=== PATIENT | male | born 1940 | race Caucasian/White ===

== ENCOUNTER 2018-10-24 07:32 | Observation (INO) | payer MEDICARE, OTHER ==
[~2018-10-24] VITALS: Ht 167.6 cm; Wt 74.1 kg
[2018-10-24] MEDS ORDERED: [UNRECOGNIZED DRUG - REMARK] (07:39)
[2018-10-24 08:00] VITALS: BP 136/88
[2018-10-24 08:30] LABS: BASOPHILS 0.1 % (0-2); EOSINOPHILS 1.8 % (0-7); HEMATOCRIT 42.2 % (42.0-54.0); HEMOGLOBIN 14.6 g/dL (13.5-17.5); IMMATURE GRANULOCYTES 0.1 % (0-5); LYMPHOCYTES 17.5 % (15-50); MCH 33.6 pg (26.0-34.0); MCHC 34.6 g/dL (31.0-37.0); MEAN PLATELET VOLUME 10.2 fL (7.4-10.4); MONOCYTES 6.8 % (2-11); NEUTROPHILS 73.7 % (40-80); PLATELET COUNT 158 10x3/uL (130-400); RBC 4.35 10x6/uL (4.20-6.10); RDW 15.2 % (11.5-14.5); WBC 7.9 10x3/uL (4.8-10.8)
[2018-10-24 08:46] LABS: ALBUMIN 3.3 g/dL (3.4-5.0); ALKALINE PHOSPHATASE 68 U/L (46-116); ALT (SGPT) 12 U/L (10-68); BILIRUBIN - TOTAL 0.75 mg/dL (0.2-1.3); CALC OSMOLALITY 274 mosm/kg (275-300); CALCIUM 8.9 mg/dL (8.5-10.1); CARBON DIOXIDE 29.5 mmol/L (21.0-32.0); CHLORIDE - SERUM 100 mmol/L (98-107); CREATININE - SERUM 0.7 mg/dL (0.6-1.3); GLUCOSE 92 mg/dL (74-106); POTASSIUM - SERUM 3.6 mmol/L (3.5-5.1); PROTEIN - SERUM 6.9 g/dL (6.4-8.2); SODIUM 139 mmol/L (136-145); UREA NITROGEN 5 mg/dL (7-18); eGFR NON AFRICAN AMERICAN > 90 mL/min (90-120)
[2018-10-24 08:47] LABS: APPEARANCE SL CLDY (CLEAR); BILIRUBIN NEGATIVE (NEGATIVE); COLOR YELLOW (YELLOW); GLUCOSE NEGATIVE (NEGATIVE); KETONE LARGE mg/dL (NEGATIVE); NITRITE NEGATIVE (NEGATIVE); PROTEIN TRACE mg/dL (NEGATIVE); UROBILINOGEN NORMAL (NORMAL)
[2018-10-24 08:48] LABS: BACTERIA MANY /hpf (NONE SEEN); EPITHELIAL CELLS OCC /hpf (0-5)
[2018-10-24 08:51] LABS: AMYLASE - SERUM 32 U/L (25-115); LIPASE 175 U/L (73-393); TROPONIN-I < 0.017 ng/mL (0.000-0.060)
[2018-10-24 08:58] LABS: CREATINE KINASE 37 UL (21-232)
[2018-10-24 12:00] VITALS: BP 143/94
[2018-10-24 16:00] VITALS: BP 149/84
[2018-10-24 20:00] VITALS: BP 132/64
[2018-10-24 23:46] VITALS: BP 132/64; Ht 167.6 cm; Wt 74.1 kg
[2018-10-25] VITALS: BP 130/66
[2018-10-25 04:00] VITALS: BP 142/78
[2018-10-25 04:54] LABS: BASOPHILS 0.1 % (0-2); EOSINOPHILS 4.9 % (0-7); HEMATOCRIT 39.3 % (42.0-54.0); HEMOGLOBIN 13.4 g/dL (13.5-17.5); IMMATURE GRANULOCYTES 0.3 % (0-5); LYMPHOCYTES 20.1 % (15-50); MCH 32.9 pg (26.0-34.0); MCHC 34.1 g/dL (31.0-37.0); MCV 96.6 fL (80.0-100.0); MEAN PLATELET VOLUME 10.6 fL (7.4-10.4); MONOCYTES 5.8 % (2-11); NEUTROPHILS 68.8 % (40-80); PLATELET COUNT 151 10x3/uL (130-400); RBC 4.07 10x6/uL (4.20-6.10); RDW 14.7 % (11.5-14.5); WBC 6.8 10x3/uL (4.8-10.8)
[2018-10-25 05:15] LABS: ALBUMIN 2.7 g/dL (3.4-5.0); ALKALINE PHOSPHATASE 57 U/L (46-116); ALT (SGPT) 9 U/L (10-68); BILIRUBIN - TOTAL 0.47 mg/dL (0.2-1.3); CALCIUM 8.2 mg/dL (8.5-10.1); CARBON DIOXIDE 28.4 mmol/L (21.0-32.0); CHLORIDE - SERUM 103 mmol/L (98-107); GLUCOSE 89 mg/dL (74-106); POTASSIUM - SERUM 3.2 mmol/L (3.5-5.1); PROTEIN - SERUM 6.1 g/dL (6.4-8.2); SODIUM 141 mmol/L (136-145)
[2018-10-25 05:20] LABS: CALC OSMOLALITY 276 mosm/kg (275-300); CREATININE - SERUM 0.5 mg/dL (0.6-1.3); UREA NITROGEN 3 mg/dL (7-18); eGFR NON AFRICAN AMERICAN > 90 mL/min (90-120)
[2018-10-25 08:15] VITALS: BP 142/80
[2018-10-25] MEDS ORDERED: HYDROCODON-ACE1 EAC7 PO (10:37)
[2018-10-25] MEDS ORDERED: LEVAQUIN250 MG PO (10:37)
[2018-10-25] MEDS ORDERED: MIRALAX17 GM PO (10:37)
[2018-10-25] MEDS ORDERED: FLOMAX0.4 MG PO (10:38)
== END 2018-10-25 13:22 | disposition home or self-care (01) ==
LOC: D.ER 07:32 → D.EDHOLD 11:23 → OBSVTIME 11:23 → D.MS 15:21
PROVIDERS: Family Medicine
DX: N39.0 Urinary tract infection, site not specified (principal); I10 Essential (primary) hypertension; J44.9 Chronic obstructive pulmonary disease, unspecified; Z72.89 Other problems related to lifestyle

== ENCOUNTER 2019-04-01 19:40 | Inpatient (IN) | payer MEDICARE, OTHER ==
[~2019-04-01] VITALS: Ht 162.6 cm; Wt 69.4 kg
--- NOTE | ~2019-04-01 | EC ---
PATIENT:YI POLK DATE OF SERVICE: 04/02/19 SEX: M MEDICAL RECORD: [id number] DATE OF : 44 LOCATION:D.M3 D.121 AGE OF PATIENT: 78 ADMISSION DATE: 04/02/19 REFERRING PHYSICIAN: INTERPRETING PHYSICIAN: TERE MACIAS MD ECHOCARDIOGRAM REPORT ECHO CHARGES 4 ECHO COMPLETE Date: 04/02/19 CLINICAL DIAGNOSIS: TIA ECHOCARDIOGRAPHIC MEASUREMENTS (adult normal given) AC root (d.<3.7cm) 2.6 cm LV Septum d (<1.2 cm> 1.0 cm Valve Excursion 1.7 cm LV Septum (systole) 1.1 cm Left Atria (s.<4.0cm> 4.4 cm LVPW d(<1.2cm) 1.0 cm RV (d.<2.3cm) 3.4 cm LVPW (sytole) 1.2 cm LV diastole(<5.6CM) 5.7 cm MV E-F(>70mm/sec) cm LV systole 4.2 cm LVOT Diameter 2.0 cm MV exc.(>10mm) cm Est.ejection fraction (50-75%) % DOPPLER: LVIT cm/sec A 98 cm/sec E 62 cm/sec LA cm/sec RVSP 32.2 mmHg LVOT 150 cm/sec AOP1/2T m/s Asc. Ao 183 cm/sec RVOT 79 cm/sec RA cm/sec PA 118 cm/sec AV Gradient Peak 13.4 mmHg AV Mean 7.6 mmHg AV Area 3.2 cm MV Gradient Peak 4.5 mmHg MV Mean 2.5 mmHg MV Area cm COMMENTS: Duty Officer: Luigi SORIA Automotive Porter: 1 Dr. Macias TAPE# PACS Pericardial Effusion N DATE OF SERVICE: 04/02/2019 FINDINGS: 1. Left ventricular chamber size is within normal limits. Left ventricular systolic function is normal. Overall ejection fraction 55% to 60%. 2. Left atrium is enlarged at 4.4 cm. Right atrium and right ventricular chamber sizes are as well mildly dilated. 3. Valvular structures have normal structure and motion. 4. Doppler interrogation reveals trace mitral regurgitation, mild tricuspid regurgitation, no other valvular insufficiency or stenosis. ECHOCARDIOGRAM REPORT [id number] YI POLK 5. No evidence of pericardial effusion or left ventricular thrombus. TRANSINT:[id number] Voice Confirmation ID: [id number] DOCUMENT ID: [id number] TERE MACIAS MD CC: [id number] DICTATION DATE: 04/03/19 1046 MANAGER DENTAL: 04/03/19 1316 ADM IN [facility] [address] [id number]
[~2019-04-01 19:40] MED LIST: FLOMAX0.4 MG PO; HYDROCODON-ACE1 EAC7 PO; LEVAQUIN250 MG PO; MIRALAX17 GM PO; [UNRECOGNIZED DRUG - REMARK]
[2019-04-01 20:07] VITALS: BP 132/68
--- NOTE | 2019-04-01 20:10 | NUR ---
FSBS - 113. ERP INFORMED.
[2019-04-01 20:23] LABS: APTT 28.9 SECONDS (22.8-39.4); BASOPHILS 0.2 % (0-2); EOSINOPHILS 3.9 % (0-7); HEMATOCRIT 43.4 % (42.0-54.0); HEMOGLOBIN 15.1 g/dL (13.5-17.5); IMMATURE GRANULOCYTES 0.1 % (0-5); INR 1.01 (0.85-1.17); LYMPHOCYTES 23.9 % (15-50); MCH 31.6 pg (26.0-34.0); MCHC 34.8 g/dL (31.0-37.0); MCV 90.8 fL (80.0-100.0); MEAN PLATELET VOLUME 9.5 fL (7.4-10.4); MONOCYTES 7.3 % (2-11); NEUTROPHILS 64.6 % (40-80); PLATELET COUNT 202 10x3/uL (130-400); PROTIME 12.8 SECONDS (11.6-15.0); RBC 4.78 10x6/uL (4.20-6.10); WBC 8.4 10x3/uL (4.8-10.8)
[2019-04-01 20:39] LABS: ALBUMIN 3.4 g/dL (3.4-5.0); ALKALINE PHOSPHATASE 51 U/L (46-116); ALT (SGPT) 20 U/L (10-68); BILIRUBIN - TOTAL 0.34 mg/dL (0.2-1.3); CALC OSMOLALITY 279 mosm/kg (275-300); CALCIUM 9.1 mg/dL (8.5-10.1); CARBON DIOXIDE 26.3 mmol/L (21.0-32.0); CHLORIDE - SERUM 104 mmol/L (98-107); CREATININE - SERUM 1.4 mg/dL (0.6-1.3); GLUCOSE 115 mg/dL (74-106); POTASSIUM - SERUM 4.5 mmol/L (3.5-5.1); SODIUM 138 mmol/L (136-145); UREA NITROGEN 22 mg/dL (7-18); eGFR NON AFRICAN AMERICAN 52 mL/min (90-120)
[2019-04-01 20:40] VITALS: BP 120/68
--- NOTE | 2019-04-01 20:47 | NUR ---
URINE SENT TO THE LAB.
[2019-04-01 20:49] LABS: CKMB 1.4 U/L (0.0-3.6); CREATINE KINASE 50 UL (21-232); MAGNESIUM - SERUM 2.1 mg/dL (1.8-2.4); THYROID STIMULATING HORMONE 5.55 uIU/mL (0.36-3.74)
[2019-04-01 20:50] LABS: TROPONIN-I < 0.017 ng/mL (0.000-0.060)
[2019-04-01 21:01] LABS: APPEARANCE CLEAR (CLEAR); BILIRUBIN NEGATIVE (NEGATIVE); COLOR YELLOW (YELLOW); GLUCOSE NEGATIVE (NEGATIVE); KETONE NEGATIVE (NEGATIVE); NITRITE NEGATIVE (NEGATIVE); PROTEIN TRACE mg/dL (NEGATIVE); SPECIFIC GRAVITY 1.015 (1.005-1.020); UROBILINOGEN NORMAL (NORMAL)
[2019-04-01 21:02] LABS: BACTERIA MODERATE /hpf (NONE SEEN); RED CELLS - URINE 0-5 /hpf (0-5); WHITE CELLS - URINE 0-5 /hpf (0-5)
[2019-04-01 21:11] LABS: UDS - AMPHET NEGATIVE QUAL (NEGATIVE); UDS - BARB NEGATIVE QUAL (NEGATIVE); UDS - BENZO NEGATIVE QUAL (NEGATIVE); UDS - COCAINE NEGATIVE QUAL (NEGATIVE); UDS - OPIATE NEGATIVE QUAL (NEGATIVE); UDS - PCP NEGATIVE QUAL (NEGATIVE); UDS - THC NEGATIVE QUAL (NEGATIVE)
[2019-04-01 22:40] VITALS: BP 131/68
--- NOTE | 2019-04-01 23:45 | NUR ---
VAN WITH MRI HERE TO TAKE PT FOR MRI. SHE WILL TRANSPORT PT TO HIS ROOM. CALL TO FLOOR TO INFORM MIRIAN OSULLIVAN THAT PT WILL COME TO ROOM AFTER MRI. SHE VOICED UNDERSTANDING.
[2019-04-02 03:08] VITALS: BP 143/79; BMI 26.3
[2019-04-02] MEDS ORDERED: ALBUTEROL SULF8.5 GM INH (03:58)
[2019-04-02] MEDS ORDERED: COMBIVENT RESPIM4 GM INH (03:59)
[2019-04-02] MEDS ORDERED: COZAAR50 MG PO (04:00)
[2019-04-02] MEDS ORDERED: MOBIC7.5 MG PO (04:00)
[2019-04-02] MEDS ORDERED: NORVASC10 MG PO (04:00)
[2019-04-02] MEDS ORDERED: LIPITOR20 MG PO (04:00)
[2019-04-02 04:34] VITALS: BP 119/62
[2019-04-02 07:17] LABS: BASOPHILS 0.3 % (0-2); EOSINOPHILS 4.4 % (0-7); HEMATOCRIT 42.4 % (42.0-54.0); HEMOGLOBIN 14.5 g/dL (13.5-17.5); IMMATURE GRANULOCYTES 0.2 % (0-5); LYMPHOCYTES 30.9 % (15-50); MCH 31.3 pg (26.0-34.0); MCHC 34.2 g/dL (31.0-37.0); MCV 91.4 fL (80.0-100.0); MEAN PLATELET VOLUME 9.6 fL (7.4-10.4); MONOCYTES 7.3 % (2-11); NEUTROPHILS 56.9 % (40-80); PLATELET COUNT 198 10x3/uL (130-400); RBC 4.64 10x6/uL (4.20-6.10); RDW 15.3 % (11.5-14.5); WBC 6.6 10x3/uL (4.8-10.8)
[2019-04-02 07:45] LABS: ALBUMIN 3.4 g/dL (3.4-5.0); ALKALINE PHOSPHATASE 49 U/L (46-116); ALT (SGPT) 19 U/L (10-68); BILIRUBIN - TOTAL 0.26 mg/dL (0.2-1.3); CALC OSMOLALITY 281 mosm/kg (275-300); CALCIUM 9.2 mg/dL (8.5-10.1); CARBON DIOXIDE 27.7 mmol/L (21.0-32.0); CHLORIDE - SERUM 106 mmol/L (98-107); CREATININE - SERUM 1.2 mg/dL (0.6-1.3); GLUCOSE 99 mg/dL (74-106); POTASSIUM - SERUM 4.9 mmol/L (3.5-5.1); PROTEIN - SERUM 6.9 g/dL (6.4-8.2); SODIUM 140 mmol/L (136-145); TROPONIN-I < 0.017 ng/mL (0.000-0.060); UREA NITROGEN 20 mg/dL (7-18); eGFR NON AFRICAN AMERICAN 63 mL/min (90-120)
[2019-04-02 08:07] VITALS: Ht 162.6 cm; Wt 69.4 kg
[2019-04-02 08:27] VITALS: BP 113/64
--- NOTE | 2019-04-02 09:02 | NUR ---
PT SITTING UP IN BED WITH DAUGHTER AT BEDSIDE, STATES HE FEELS FINE NO OTHER NEEDS VOICED. CONTINUE WITH PLAN OF CARE
--- NOTE | 2019-04-02 12:25 | NUR ---
I HAVE REVIWED THIS PATIENT AND I CONCUR WITH THE SHIFT ASSESSMENT COMPLETED BY THE LICENSED PRACTICAL NURSE TODAY THIS SHIFT.
[2019-04-02 12:31] VITALS: BP 168/66
[2019-04-02 17:03] VITALS: BP 126/63
--- NOTE | 2019-04-02 19:33 | NUR ---
PATIENT RESTING IN BED AND DENIES NEEDS AT THIS TIME. BED IN LOWEST POSITION AND CALL LIGHT WITHIN REACH. ENCOURAGED THE PATIENT TO CALL IF HE HAS NEEDS. WILL CONTINUE TO MONITOR.
[2019-04-02 20:18] VITALS: BP 117/84
[2019-04-03 00:16] VITALS: BP 102/54
[2019-04-03 04:14] VITALS: BP 115/64
[2019-04-03 07:04] LABS: HEMATOCRIT 37.9 % (42.0-54.0); HEMOGLOBIN 13.2 g/dL (13.5-17.5); LYMPHOCYTES 28.5 % (15-50); MCH 32.2 pg (26.0-34.0); MCHC 34.8 g/dL (31.0-37.0); MCV 92.4 fL (80.0-100.0); MEAN PLATELET VOLUME 9.3 fL (7.4-10.4); NEUTROPHILS 63.1 % (40-80); PLATELET COUNT 190 10x3/uL (130-400); RDW 15.3 % (11.5-14.5); WBC 6.5 10x3/uL (4.8-10.8)
[2019-04-03 07:12] LABS: ANION GAP 13.9 mmol/L (8-16); CALCIUM 8.5 mg/dL (8.5-10.1); CARBON DIOXIDE 25.4 mmol/L (21.0-32.0); CHOL - HDL RATIO 2.9 ratio (2.3-4.9); CREATININE - SERUM 1.3 mg/dL (0.6-1.3); LDL-HDL RATIO 1.5 ratio (1.5-3.5); POTASSIUM - SERUM 4.3 mmol/L (3.5-5.1)
--- NOTE | 2019-04-03 07:36 | NUR ---
AWAKE AND ALERT. ORIENTED X3. NO C/O AT THIS TIME. NEURO CHECKS WNL. LUNGS HAVE WHEEZES THROUGHOUT, NO COUGH NOTED. O2 AT 3L NC. SKIN IS INTACT WITHOUT REDNESS. AT BEDSIDE. SL TO RIGHT FOREARM X2, PATENT WITHOUT REDNESS AT INSERTION SITE. DENIES NEEDS.
[2019-04-03 07:56] VITALS: BP 107/54
--- NOTE | 2019-04-03 08:38 | NUR ---
ATE ALMOST ALL OF BREAKFAST. DENIES NEEDS. AT BEDSIDE.
--- NOTE | 2019-04-03 09:37 | MORECARE ---
CASE MANAGEMENT DISCHARGE SUMMARY PATIENT: YI POLK UNIT: [id number] ADM DATE: 04/02/19 AGE: 78 : 42 SEX: M ROOM/BED: D.1211 AUTHOR: BRUCE,DOC PHYSICIAN: REFERRING PHYSICIAN: VIKI HAM MD DATE OF SERVICE: 04/03/19 Discharge Plan Patient Name: YI POLK Facility: [facility]:[place] : 1940 Planned Disposition: Home Anticipated Discharge Date: Discharge Date: Expected LOS: Initial Reviewer: DIANA Initial Review Date: 04/03/2019 Generated: 04/03/19 10:37 am Comments DCP- Discharge Planning Updated by [email or web address]: Neeta Olivares on 04/03/19 8:[address] Patient Name: YI POLK Admission Status: ER Accout number: [id number] Admission Date: 04-02-2019 : 1940 Admission Diagnosis: Attending: VIKI HAM Current LOS: 1 Anticipated DC Date: Planned Disposition: Home Primary Insurance: MEDICARE A & B Discharge Planning Comments: CM met with patient to complete initial dc planning assessment. CM educated patient on the CM role and verbal consent given by patient to complete assessment. CM verified patient's address, phone number, and emergency contact phone numbers. Patient lives at home with spouse and reports he independent in his care. At discharge patient plans to return home and feels this is a safe discharge. CM discussed availability of home health, rehab services, and medical equipment. Pt has home 02 thru [facility]. Patient denied known discharge needs at this time. Patient reports his spouse will transport him home at time of discharge. CM will continue to follow and will assist as needed with dc plans/needs. Framing Carpenter: Neeta Olivares DCPIA - Discharge Planning Initial Assessment Updated by [email or web address]: Neeta Olivares on 04/03/19 9:35 am * Is the patient Alert and Oriented? Yes * How many steps to enter\exit or inside your home? * PCP INA * Pharmacy [address] [facility] * Preadmission Environment Home with Family * ADLs Independent * Equipment Oxygen * Verbal permission to speak to the caregivers and representatives has been obtained from the patient. Yes * Please name any agencies selected above. [facility] * Additional services required to return to the preadmission environment? No * Can the patient safely return to the preadmission environment? Yes * Has this patient been hospitalized within the prior 30 days at any hospital? No Patient Name: YI POLK Page 48881 at 0937 All edits/amendments must be made on the electronic document DICTATION DATE: 04/03/19936 PRODUCT TEST SPECIALIST: ARELI 04/03/19936 RPT#: [id number] DC DATE: STATUS: ADM IN [facility] [address] [place] [address] END OF REPORT
[2019-04-03 11:06] VITALS: BP 158/75
--- NOTE | 2019-04-03 13:00 | NUR ---
DR. NEAL HERE. DAUGHTER NOTIFIED OF SAME SO SHE COULD TALK WITH HIM. ALL QUESTIONS ANSWERED.
[2019-04-03] MEDS ORDERED: ASPIRIN325 MG PO (15:33)
[2019-04-03 15:39] VITALS: BP 115/70
--- NOTE | 2019-04-03 16:56 | NUR ---
PATIENT IS DISCHARGED TO HOME AMBULATORY WITH . DISCHARGE INSTRUCTIONS GIVEN BOTH VERBALLY AND WRITTEN. ALL QUESTIONS ANSWERED. PATIENT AND VERBALLIZED UNDERSTANDING OF SAME. SL TO RIGHT FOREARM D/C X2 WITH CATHETERS INTACT. WAITING ON RIDE TO D/C HOME.
--- NOTE | 2019-04-03 17:06 | NUR ---
DISCHARGED TO HOME WITH FAMILY. ALL BELONGINGS WITH PATIENT.
--- NOTE | 2019-04-04 12:03 | MORECARE ---
CASE MANAGEMENT DISCHARGE SUMMARY PATIENT: YI POLK UNIT: [id number] ADM DATE: 04/02/19 AGE: 78 : 42 SEX: M ROOM/BED: D.1211 AUTHOR: BRUCE,DOC PHYSICIAN: REFERRING PHYSICIAN: VIKI HAM MD DATE OF SERVICE: 04/04/19 Discharge Plan Patient Name: YI POLK Facility: [facility]:[place] : 1940 Planned Disposition: Home Anticipated Discharge Date: Discharge Date: 04/03/2019 Expected LOS: Initial Reviewer: [email or web address] Initial Review Date: 04/03/2019 Generated: 04/04/19 1:03 pm Comments DCP- Discharge Planning Updated by [email or web address]: Neeta Olivares on 04/03/19 8:[address] Patient Name: YI POLK Admission Status: ER Accout number: [id number] Admission Date: 04-02-2019 : 1940 Admission Diagnosis: Attending: VIKI HAM Current LOS: 1 Anticipated DC Date: Planned Disposition: Home Primary Insurance: MEDICARE A & B Discharge Planning Comments: CM met with patient to complete initial dc planning assessment. CM educated patient on the CM role and verbal consent given by patient to complete assessment. CM verified patient's address, phone number, and emergency contact phone numbers. Patient lives at home with spouse and reports he independent in his care. At discharge patient plans to return home and feels this is a safe discharge. CM discussed availability of home health, rehab services, and medical equipment. Pt has home 02 thru [facility]. Patient denied known discharge needs at this time. Patient reports his spouse will transport him home at time of discharge. CM will continue to follow and will assist as needed with dc plans/needs. Electricity Trading Analyst: Neeta Olivares DCPIA - Discharge Planning Initial Assessment Updated by [email or web address]: Neeta Olivares on 04/03/19 9:35 am * Is the patient Alert and Oriented? Yes * How many steps to enter\exit or inside your home? * PCP INA * Pharmacy [address] [facility] * Preadmission Environment Home with Family * ADLs Independent * Equipment Oxygen * Verbal permission to speak to the caregivers and representatives has been obtained from the patient. Yes * Please name any agencies selected above. [facility] * Additional services required to return to the preadmission environment? No * Can the patient safely return to the preadmission environment? Yes * Has this patient been hospitalized within the prior 30 days at any hospital? No Last DP export: 04/03/19 8:37 a Patient Name: YI POLK Page 41002 at 1203 All edits/amendments must be made on the electronic document DICTATION DATE: 04/04/19 1203 HOUSECLEANER FLOOR: ARELI 04/04/19 1203 RPT#: [id number] DC DATE:04/03/19 STATUS: DIS IN [facility] [address] [place] [address] END OF REPORT
== END 2019-04-03 17:06 | disposition home or self-care (01) | DRG 66 ==
LOC: D.ER 19:40 → OBSVTIME 22:25 → D.M3 22:25
PROVIDERS: Emergency Medicine; Family Medicine; ADMIT Internal Medicine Nephrology; ATTEND Internal Medicine Nephrology
DX: I63.81 Other cerebral infarction due to occlusion or stenosis of small artery (principal); R47.81 Slurred speech; R40.2363 Coma scale, best motor response, obeys commands, at hospital admission; R40.2143 Coma scale, eyes open, spontaneous, at hospital admission; R40.2253 Coma scale, best verbal response, oriented, at hospital admission; J44.9 Chronic obstructive pulmonary disease, unspecified; I10 Essential (primary) hypertension; E78.5 Hyperlipidemia, unspecified; I65.23 Occlusion and stenosis of bilateral carotid arteries